=== PATIENT | male | born 1975 | race Caucasian/White ===

== ENCOUNTER 2016-09-02 11:34 | Inpatient (IN) ==
--- NOTE | 2016-09-02 12:13 | Emergency Department Note ---
Disposition Clinical Impression: Suicidal ideations Disposition: Still a Patient Condition: Good Referrals: NO,PCP [Primary Care Provider] - Forms: ED Satisfaction Letter Time of Disposition: 22:35 General Adult HPI - General Chief complaint: ED Psychiatric Symptoms Stated complaint: Psych Eval Time Seen by Provider: 09/02/16 11:40 Source: patient Limitations: no limitations Nursing Notes Reviewed: Yes Vital Signs Reviewed: Yes - History of Present Illness HPI Narrative: Patient saw his family doctor this morning and told them that he was having suicidal ideation. This is been present for days and weeks. He was raising a 4 -year-old child until a couple months ago and had that relationship broken off. He lives alone and does not have a job. He takes antibiotics off the street every day. He denies any drug use or alcohol use. He has overdosed prior on pills. He states he is taking heroin. He is pleasant and calm and interactive on my examination. Vital week ago he was admitted to [place] for pneumonia as an inpatient, but he has no such presentation of pneumonia or respiratory issue today. Symptoms were moderate and now mild. He has talked to counselors before and psychiatrist before but not lately Pain Scale: 7 - Related Data Allergies Allergy/AdvReac Type Severity Reaction Status Date / Time No Known Allergies Allergy Verified 09/02/16 11:35 Constitutional: Denies: fever, chills, weakness, weight change Eyes: Denies: eye pain, eye discharge, vision change ENT ED: Denies: ear pain, throat pain, dental pain, hearing loss, epistaxis, congestion, dysphagia Cardiovascular: Denies: chest pain, palpitations, dyspnea on exertion, edema, syncope Respiratory: Denies: cough, dyspnea, wheezes, hemoptysis, stridor Gastrointestinal: Denies: abdominal pain, nausea, vomiting, diarrhea, constipation, hematemesis, melena, hematochezia Genitourinary: Denies: urgency, dysuria, frequency, hematuria Musculoskeletal: Denies: back pain, neck pain, arthralgia, myalgia Integumentary: Denies: rash, abrasion, lesions Neurological: Denies: headache, weakness, numbness, paresthesias, confusion, abnormal gait, vertigo Psychiatric: Reports: as per HPI, anxiety, depression, suicidal thoughts. Denies: homicidal thoughts, auditory hallucinations, visual hallucinations Endocrine: Denies: fatigue Hematological/Lymphatic: Denies: easy bleeding, easy bruising Allergic/Immunologic: Denies: facial swelling, urticaria Past Medical History - Past Medical History Medical history: Reports: seizures - Social History Smoking Status: Current every day smoker Alcohol use: Reports: none Drug use: Reports: prescription drug abuse Physical Exam - General Limitations: no limitations General appearance: alert, in no apparent distress - Head Head exam: atraumatic, normocephalic, normal inspection - Eye Eye exam: Present: normal appearance, PERRL, EOMI - Expanded Eye Exam Pupils: Left: reactive - ENT ENT exam: normal exam, normal oropharynx, mucous membranes moist - Expanded ENT Exam External ear exam: Present: normal external inspection Mouth exam: Present: normal external inspection Teeth exam: Present: normal inspection Throat exam: Present: normal inspection - Neck Neck exam: Present: normal inspection, full ROM, trachea midline - Chest Chest inspection: Present: normal inspection, symmetric chest wall rise - Respiratory Respiratory exam: Present: normal lung sounds bilaterally - Cardiovascular Cardiovascular exam: Present: regular rate, normal rhythm, normal heart sounds - Abdominal Exam Abdominal exam: Present: soft, Non-Tender. Absent: tenderness, distention, guarding, rebound, rigidity - Extremities Exam Extremities exam: Present: normal inspection, full ROM. Absent: tenderness, pedal edema - Expanded Upper Extremity Exam Shoulder exam: Present: normal inspection, full ROM Arm exam: Present: normal inspection, full ROM Elbow exam: Present: normal inspection, full ROM Forearm/Wrist exam: Present: normal inspection, full ROM Hand exam: Present: normal inspection, full ROM Vascular exam: Normal: capillary refill, radial pulse - Expanded Lower Extremity Exam Hip/Pelvis exam: Present: normal inspection, full ROM Upper leg exam: Present: normal inspection, full ROM Knee exam: Present: normal inspection, full ROM Lower leg exam: Present: normal inspection, full ROM Ankle exam: Present: normal inspection, full ROM Foot/toe exam: Present: normal inspection, full ROM Neurovascular/Tendon exam: Absent: motor deficit, sensory deficit, tendon deficit - Back Exam Back exam: Present: normal inspection, full ROM. Absent: tenderness - Neurological Exam Neurological exam: Present: alert, oriented X3 - Expanded Neurological Exam Patient oriented to: Present: person, place, time Coma Scale Eye Opening: Spontaneous Coma Scale Motor Response: Obeys Commands Coma Scale Verbal Response: Oriented Coma Scale Total: 15 - Psychiatric Psychiatric exam: Present: normal affect, depressed, anxious. Absent: agitated - Skin Skin exam: Present: warm, dry, intact, normal color Course Course Narrative: Patient reevaluated, stable calm and cooperative at 7:00 and at 9:00. I spoke with the psychiatric floor, one A, and they state that they are trying multiple facilities to get the patient accepted and have been having issues with who takes his insurance. There now sending information to [facility] [place] for the second time. Vital Signs Temperature 97.7 F 09/02/16 11:36 Pulse Rate 86 09/02/16 11:36 Respiratory Rate 18 09/02/16 11:36 Blood Pressure 136/91 09/02/16 11:36 O2 Sat by Pulse Oximetry 100 09/02/16 11:36 Temperature 97.7 F 09/02/16 11:36 Pulse Rate 84 09/02/16 15:55 Respiratory Rate 20 09/02/16 15:55 Blood Pressure 93/61 09/02/16 15:55 O2 Sat by Pulse Oximetry 99 09/02/16 15:55 Oxygen Delivery Oxygen Delivery Room Air Medical Decision Making - Lab Data Result diagrams: 09/02/16 12:20 09/02/16 12:20 Lab Results 09/02/16 09/02/16 09/02/16 Range/Units 12:20 12:20 12:49 WBC 9.6 (4.3-11.1) K/mcL RBC 5.39 (4.19-5.50) M/mcL Hgb 14.6 (12.9-16.9) g/dL Hct 46.4 (37.5-50.1) % MCV 86.1 (83.0-100.0) fL MCH 27.1 L (28.0-33.3) pg MCHC 31.5 L (31.6-35.5) g/dL RDW 13.2 (11.5-14.5) % Plt Count 293 (140-400) K/mcL MPV 9.4 (9.4-12.4) fL Immature Plt Fraction 3.3 (1.1-6.1) % Sodium 139 (136-145) mEq/L Potassium 4.3 (3.5-4.5) mEq/L Chloride 105 (98-109) mEq/L Carbon Dioxide 25 (19-29) mEq/L BUN 8 (8-26) mg/dL Creatinine 1.00 (0.72-1.25) mg/dL Est GFR ( Amer) > 60 (> 60) Est GFR (Non-Af Amer) > 60 (> 60) BUN/Creatinine Ratio 8 (6-26) Glucose 85 (70-99) mg/dL Calculated Osmolality 286 (280-300) Calcium 9.4 (8.6-10.8) mg/dL Urine Color (Yellow) Urine Clarity (Clear) Urine pH (5.0-8.0) pH Units Ur Specific [place] (1.010-1.025) Urine Protein (Neg-Trace) mg/dL Urine Glucose (UA) (Normal) mg/dL Urine Ketones (Negative) mg/dL Urine Blood (Negative) Urine Nitrite (Negative) Urine Bilirubin (Negative) Urine Urobilinogen (Normal) mg/dL Ur Leukocyte Esterase (Negative) Urine Opiates Screen Negative (Wgwqzn=044) ng/mL Ur Barbiturates Screen Negative (Vgogcm=356) ng/mL Ur Phencyclidine Scrn Negative (Cutoff=25) ng/mL Ur Amphetamines Screen Negative (Rjmeqz=6639) ng/mL U Benzodiazepines Scrn Positive H (Ruaknz=123) ng/mL Urine Cocaine Screen Negative (Cutoff= 300) ng/mL U Marijuana (THC) Screen Negative (Cutoff = 50) ng/mL Ethyl Alcohol < 10 (0-10) mg/dL 09/02/16 Range/Units 12:55 WBC (4.3-11.1) K/mcL RBC (4.19-5.50) M/mcL Hgb (12.9-16.9) g/dL Hct (37.5-50.1) % MCV (83.0-100.0) fL MCH (28.0-33.3) pg MCHC (31.6-35.5) g/dL RDW (11.5-14.5) % Plt Count (140-400) K/mcL MPV (9.4-12.4) fL Immature Plt Fraction (1.1-6.1) % Sodium (136-145) mEq/L Potassium (3.5-4.5) mEq/L Chloride (98-109) mEq/L Carbon Dioxide (19-29) mEq/L BUN (8-26) mg/dL Creatinine (0.72-1.25) mg/dL Est GFR ( Amer) (> 60) Est GFR (Non-Af Amer) (> 60) BUN/Creatinine Ratio (6-26) Glucose (70-99) mg/dL Calculated Osmolality (280-300) Calcium (8.6-10.8) mg/dL Urine Color Yellow (Yellow) Urine Clarity Clear (Clear) Urine pH 6.0 (5.0-8.0) pH Units Ur Specific [place] 1.012 (1.010-1.025) Urine Protein Negative (Neg-Trace) mg/dL Urine Glucose (UA) Normal (Normal) mg/dL Urine Ketones Negative (Negative) mg/dL Urine Blood Negative (Negative) Urine Nitrite Negative (Negative) Urine Bilirubin Negative (Negative) Urine Urobilinogen Normal (Normal) mg/dL Ur Leukocyte Esterase Negative (Negative) Urine Opiates Screen (Kehxju=187) ng/mL Ur Barbiturates Screen (Wpcmqn=108) ng/mL Ur Phencyclidine Scrn (Cutoff=25) ng/mL Ur Amphetamines Screen (Ytjyun=0715) ng/mL U Benzodiazepines Scrn (Rmdpno=580) ng/mL Urine Cocaine Screen (Cutoff= 300) ng/mL U Marijuana (THC) Screen (Cutoff = 50) ng/mL Ethyl Alcohol (0-10) mg/dL
[2016-09-02 12:26] LABS: Hematocrit 46.4 % (37.5-50.1); Hemoglobin 14.6 g/dL (12.9-16.9); Immature Platelets 3.3 % (1.1-6.1); Mean Corpuscular HGB Conc 31.5 g/dL (31.6-35.5); Mean Corpuscular Hemoglobin 27.1 pg (28.0-33.3); Mean Corpuscular Volume 86.1 fL (83.0-100.0); Mean Platelet Volume 9.4 fL (9.4-12.4); Red Blood Count 5.39 M/mcL (4.19-5.50); Red Cell Distribution Width 13.2 % (11.5-14.5)
[2016-09-02 12:37] LABS: BUN/Creatinine Ratio 8 (6-26); Blood Urea Nitrogen 8 mg/dL (8-26); Calcium 9.4 mg/dL (8.6-10.8); Carbon Dioxide 25 mEq/L (19-29); Chloride 105 mEq/L (98-109); Ethanol < 10 mg/dL (0-10); Glucose 85 mg/dL (70-99); Osmolality,Calculated 286 (280-300); Potassium 4.3 mEq/L (3.5-4.5); Sodium 139 mEq/L (136-145); eGFR For African Americans > 60 (> 60); eGFR For Non-African Americans > 60 (> 60)
[2016-09-02 13:03] LABS: Bilirubin,Urine Negative (Negative); Blood,Urine Negative (Negative); Clarity,Urine Clear (Clear); Color,Urine Yellow (Yellow); Glucose,Urine (UA) Normal (Normal); Ketones,Urine Negative (Negative); Leukocyte Esterase,Urine Negative (Negative); Nitrite,Urine Negative (Negative); Protein,Urine Negative (Neg-Trace); Specific Gravity,Urine 1.012 (1.010-1.025); Urobilinogen,Urine Normal (Normal)
[2016-09-02 13:40] LABS: Amphetamine Screen,Urine Negative ng/mL (Cutoff=1000); Barbiturate Screen,Urine Negative ng/mL (Cutoff=200); Benzodiazepines Screen,Urine Positive ng/mL (Cutoff=200); Cannabinoid Screen,Urine Negative ng/mL (Cutoff = 50); Cocaine Screen,Urine Negative ng/mL (Cutoff= 300); Opiate Screen,Urine Negative ng/mL (Cutoff=300); Phencyclidine Screen,Urine Negative ng/mL (Cutoff=25)
[2016-09-02] MEDS: Nicotine 21 MG PATCH.TD24 TD SCH (21:02)
[2016-09-03] MEDS ORDERED: diazePAM 5 MG TABLET PO ONE (00:56)
[2016-09-03] MEDS ORDERED: Ibuprofen 600 MG TABLET PO ONE (00:57)
--- NOTE | 2016-09-03 06:51 | Emergency Department Note ---
START Narrative - START START: I, London Denise, examined this patient and my medical decision-making was reviewed with the EDGE B[employer]ING [employer] BEARER/PA/Advanced Practice Nurse/Resident Physician. I agree with the documented findings, disposition and treatment plan as described except to the extent set forth below. 41-year-old male received in sign out at 11 PM pending placement. Patient was evaluated by behavioral health and is awaiting placement at a psychiatric facility. Patient woke up midway through the night and was anxious, requiring administration of oral anxiolytics. At the end of my shift the patient had no other further concerns or complaints and is still pending disposition. Pt signed out to Dr. Dan pending dispo
--- NOTE | 2016-09-03 07:00 | Emergency Department Note ---
Disposition Clinical Impression: Suicidal ideations Disposition: Admitted As Inpatient Condition: Good Referrals: NO,PCP [Primary Care Provider] - Forms: ED Satisfaction Letter Time of Disposition: 13:39 General Adult HPI - General Chief complaint: ED Psychiatric Symptoms Stated complaint: Psych Eval Time Seen by Provider: 09/02/16 22:43 Source: patient Limitations: no limitations - History of Present Illness Pain Scale: 0 - Related Data Allergies Allergy/AdvReac Type Severity Reaction Status Date / Time No Known Allergies Allergy Verified 09/02/16 11:35 Constitutional: Denies: fever, chills, weakness, weight change Eyes: Denies: eye pain, eye discharge, vision change ENT ED: Denies: ear pain, throat pain, dental pain, hearing loss, epistaxis, congestion, dysphagia Cardiovascular: Denies: chest pain, palpitations, dyspnea on exertion, edema, syncope Respiratory: Denies: cough, dyspnea, wheezes, hemoptysis, stridor Gastrointestinal: Denies: abdominal pain, nausea, vomiting, diarrhea, constipation, hematemesis, melena, hematochezia Genitourinary: Denies: urgency, dysuria, frequency, hematuria Musculoskeletal: Denies: back pain, neck pain, arthralgia, myalgia Integumentary: Denies: rash, abrasion, lesions Neurological: Denies: headache, weakness, numbness, paresthesias, confusion, abnormal gait, vertigo Psychiatric: Reports: as per HPI, anxiety, depression, suicidal thoughts. Denies: homicidal thoughts, auditory hallucinations, visual hallucinations Endocrine: Denies: fatigue Hematological/Lymphatic: Denies: easy bleeding, easy bruising Allergic/Immunologic: Denies: facial swelling, urticaria Past Medical History - Past Medical History Medical history: Reports: seizures - Social History Smoking Status: Current every day smoker Alcohol use: Reports: none Drug use: Reports: prescription drug abuse Physical Exam - General Limitations: no limitations General appearance: alert, in no apparent distress Course Vital Signs Temperature 97.7 F 09/02/16 11:36 Pulse Rate 86 09/02/16 11:36 Respiratory Rate 18 09/02/16 11:36 Blood Pressure 136/91 09/02/16 11:36 O2 Sat by Pulse Oximetry 100 09/02/16 11:36 Temperature 98.1 F 09/03/16 10:00 Pulse Rate 62 09/03/16 10:00 Respiratory Rate 18 09/03/16 10:00 Blood Pressure 111/64 09/03/16 10:00 O2 Sat by Pulse Oximetry 100 09/03/16 10:00 Oxygen Delivery Oxygen Delivery Room Air Medical Decision Making - Lab Data Result diagrams: 09/02/16 12:20 09/02/16 12:20 Lab Results 09/02/16 09/02/16 09/02/16 Range/Units 12:20 12:20 12:49 WBC 9.6 (4.3-11.1) K/mcL RBC 5.39 (4.19-5.50) M/mcL Hgb 14.6 (12.9-16.9) g/dL Hct 46.4 (37.5-50.1) % MCV 86.1 (83.0-100.0) fL MCH 27.1 L (28.0-33.3) pg MCHC 31.5 L (31.6-35.5) g/dL RDW 13.2 (11.5-14.5) % Plt Count 293 (140-400) K/mcL MPV 9.4 (9.4-12.4) fL Immature Plt Fraction 3.3 (1.1-6.1) % Sodium 139 (136-145) mEq/L Potassium 4.3 (3.5-4.5) mEq/L Chloride 105 (98-109) mEq/L Carbon Dioxide 25 (19-29) mEq/L BUN 8 (8-26) mg/dL Creatinine 1.00 (0.72-1.25) mg/dL Est GFR ( Amer) > 60 (> 60) Est GFR (Non-Af Amer) > 60 (> 60) BUN/Creatinine Ratio 8 (6-26) Glucose 85 (70-99) mg/dL Calculated Osmolality 286 (280-300) Calcium 9.4 (8.6-10.8) mg/dL Urine Color (Yellow) Urine Clarity (Clear) Urine pH (5.0-8.0) pH Units Ur Specific [place] (1.010-1.025) Urine Protein (Neg-Trace) mg/dL Urine Glucose (UA) (Normal) mg/dL Urine Ketones (Negative) mg/dL Urine Blood (Negative) Urine Nitrite (Negative) Urine Bilirubin (Negative) Urine Urobilinogen (Normal) mg/dL Ur Leukocyte Esterase (Negative) Urine Opiates Screen Negative (Uycfbr=331) ng/mL Ur Barbiturates Screen Negative (Iwjfyd=380) ng/mL Ur Phencyclidine Scrn Negative (Cutoff=25) ng/mL Ur Amphetamines Screen Negative (Tpvrbw=7045) ng/mL U Benzodiazepines Scrn Positive H (Pkcttu=730) ng/mL Urine Cocaine Screen Negative (Cutoff= 300) ng/mL U Marijuana (THC) Screen Negative (Cutoff = 50) ng/mL Ethyl Alcohol < 10 (0-10) mg/dL 09/02/16 Range/Units 12:55 WBC (4.3-11.1) K/mcL RBC (4.19-5.50) M/mcL Hgb (12.9-16.9) g/dL Hct (37.5-50.1) % MCV (83.0-100.0) fL MCH (28.0-33.3) pg MCHC (31.6-35.5) g/dL RDW (11.5-14.5) % Plt Count (140-400) K/mcL MPV (9.4-12.4) fL Immature Plt Fraction (1.1-6.1) % Sodium (136-145) mEq/L Potassium (3.5-4.5) mEq/L Chloride (98-109) mEq/L Carbon Dioxide (19-29) mEq/L BUN (8-26) mg/dL Creatinine (0.72-1.25) mg/dL Est GFR ( Amer) (> 60) Est GFR (Non-Af Amer) (> 60) BUN/Creatinine Ratio (6-26) Glucose (70-99) mg/dL Calculated Osmolality (280-300) Calcium (8.6-10.8) mg/dL Urine Color Yellow (Yellow) Urine Clarity Clear (Clear) Urine pH 6.0 (5.0-8.0) pH Units Ur Specific [place] 1.012 (1.010-1.025) Urine Protein Negative (Neg-Trace) mg/dL Urine Glucose (UA) Normal (Normal) mg/dL Urine Ketones Negative (Negative) mg/dL Urine Blood Negative (Negative) Urine Nitrite Negative (Negative) Urine Bilirubin Negative (Negative) Urine Urobilinogen Normal (Normal) mg/dL Ur Leukocyte Esterase Negative (Negative) Urine Opiates Screen (Idtxaj=931) ng/mL Ur Barbiturates Screen (Jyjvjh=672) ng/mL Ur Phencyclidine Scrn (Cutoff=25) ng/mL Ur Amphetamines Screen (Jfnpjm=7729) ng/mL U Benzodiazepines Scrn (Ycedpi=433) ng/mL Urine Cocaine Screen (Cutoff= 300) ng/mL U Marijuana (THC) Screen (Cutoff = 50) ng/mL Ethyl Alcohol (0-10) mg/dL Attestation Statement - Attestation Attestation: Care of patient assumed from Dr. Denise 7 AM pending psychiatric disposition. Patient presented suicidal. He was medically cleared by the previous team. He is sleeping and resting comfortably at the time of my exam. Final disposition pending 13:39: 1A accepts admission
[2016-09-03] MEDS ORDERED: Nicotine 21 MG PATCH.TD24 TD SCH ×2 (09:00→21:00)
[2016-09-03] MEDS ORDERED: Ibuprofen 400 MG TABLET PO PRN (13:54)
[2016-09-03] MEDS ORDERED: Haloperidol Lactate 5 MG/ML VIAL IM PRN (13:54)
[2016-09-03] MEDS ORDERED: *HR* LORazepam 1 MG TABLET PO PRN (13:54)
[2016-09-03] MEDS ORDERED: MOM Conc 10 ML UD.LIQ PO PRN (13:54)
[2016-09-03] MEDS ORDERED: Mag Hydrox/Al Hydrox/Simeth 30 ML UDC PO PRN (13:54)
[2016-09-03] MEDS ORDERED: *HR* LORazepam 2 MG/ML VIAL IM PRN (13:54)
[2016-09-03] MEDS: Nicotine 21 MG PATCH.TD24 TD SCH (14:31)
[2016-09-03] MEDS: Amoxicillin 500 MG CAPSULE PO SCH (20:43)
[2016-09-03] MEDS: traZODone 50 MG TABLET PO PRN (20:43)
[2016-09-04] MEDS: Amoxicillin 500 MG CAPSULE PO SCH ×2 (08:30→20:54)
[2016-09-04] MEDS: Nicotine 21 MG PATCH.TD24 TD SCH (08:30)
[2016-09-04] MEDS ORDERED: Acetaminophen/Aspirin/Caffeine TABLET PO PRN (14:00)
--- NOTE | 2016-09-04 14:26 | Psychiatry History & Physical ---
Date of Encounter: 09/04/16 Time of Encounter: 13:30 History of Present Illness Patient Stated Chief Complaint: Suicidal and homicidal Medicare Admission Attestation: For traditional Medicare patients the provided hospital inpatient services are reasonable and necessary and in the case of services not specified as inpatient -only under 42 CFR 419.22 (n), that they are appropriately provided as inpatient services in accordance 42 CFR 412.3. For Critical Access Hospital the patient may reasonably be expected to be discharged or transferred to a hospital within 96 hours after admission to the Critical Access Hospital. Admitted From: Emergency Dept History of Present Illness: Mr. Luna is a 41 year old male admitted from the emergency for evaluation and treatment of suicidal and homicidal ideation, irritability and agitation and history of dependence on Xanax. Patient reported that he was stressed out when his 4 years old daughter was picked up by his who is from him and he is attached to his daughter. Also he has not been seeing his doctor or taken medication for a few months and felt extremely anxious and unable to sleep and he was more irritable and easily agitated. Patient had remote history of of mental health's treatment for anxiety and bipolar disorder and he did not comply or follow treatments and appointments. He also has significant history of substance abuse including benzodiazepine stimulants marijuana and alcohol and other's. He is interested in mood stabilization to control his anger and frequent fights with people and inability to keep relationships with his children or spouse. Past Med Surg Social Fam HX - Past Medical History Medical history: seizures, other - Past Psychiatric History Psychiatric history: Reports: anxiety, bipolar, other (Noncompliance) - Past Surgical History Surgical History: vasectomy - Social History Smoking Status: Current every day smoker Smokeless Tobacco Status: Yes (skoal) Alcohol use: none Drug use: methamphetamine, prescription drug abuse Medications & Allergies Amoxicillin [Amoxil] 500 mg PO BID 09/03/16 [History] Allergies No Known Allergies Allergy (Verified 09/02/16 11:35) Review of Systems Psychiatric: Reports: suicidal ideation, homicidal ideation, irritability, mood swings Mental Status Exam Patient orientation: Yes Person, Yes Time, Yes Place Level of alertness: Alert Patient appearance: Appropriate, Well Groomed Behavior: calm, cooperative, anxious, restless Psychomotor activity: Normal Eye contact: Maintains Eye Contact Mood description: Anxious, Labile, Irritable Affect description: congruent with mood, labile, dysphoric Speech pattern: Normal rate, Normal rhythm, Normal tone Speech volume: Normal Thought process: Linear, Goal Oriented, Racing Thought content: No Suicidal ideation, No Homicidal ideation, No Overt delusions Perceptual disturbances: No Auditory hallucinations, No Visual hallucinations Attention span: Capable of Focused Attention Memory description: Grossly Intact Patient reliability: Reliable Historian Intelligence estimate: Average Judgment: Limited Insight: Partial Results - Vital Signs Vital signs: Temp Pulse Resp BP Pulse Ox 98 F 74 16 100/73 100 09/04/16 09:00 09/04/16 09:00 09/04/16 09:00 09/04/16 09:00 09/03/16 10:00 - Labs Labs: Laboratory Last Values WBC 9.6 K/mcL (4.3-11.1) 09/02/16 12:20 RBC 5.39 M/mcL (4.19-5.50) 09/02/16 12:20 Hgb 14.6 g/dL (12.9-16.9) 09/02/16 12:20 Hct 46.4 % (37.5-50.1) 09/02/16 12:20 MCV 86.1 fL (83.0-100.0) 09/02/16 12:20 MCH 27.1 pg (28.0-33.3) L 09/02/16 12:20 MCHC 31.5 g/dL (31.6-35.5) L 09/02/16 12:20 RDW 13.2 % (11.5-14.5) 09/02/16 12:20 Plt Count 293 K/mcL (140-400) 09/02/16 12:20 MPV 9.4 fL (9.4-12.4) 09/02/16 12:20 Immature Plt Fraction 3.3 % (1.1-6.1) 09/02/16 12:20 Sodium 139 mEq/L (136-145) 09/02/16 12:20 Potassium 4.3 mEq/L (3.5-4.5) 09/02/16 12:20 Chloride 105 mEq/L (98-109) 09/02/16 12:20 Carbon Dioxide 25 mEq/L (19-29) 09/02/16 12:20 BUN 8 mg/dL (8-26) 09/02/16 12:20 Creatinine 1.00 mg/dL (0.72-1.25) 09/02/16 12:20 Est GFR ( Amer) > 60 (> 60) 09/02/16 12:20 Est GFR (Non-Af Amer) > 60 (> 60) 09/02/16 12:20 BUN/Creatinine Ratio 8 (6-26) 09/02/16 12:20 Glucose 85 mg/dL (70-99) 09/02/16 12:20 Calculated Osmolality 286 (280-300) 09/02/16 12:20 Calcium 9.4 mg/dL (8.6-10.8) 09/02/16 12:20 Urine Color Yellow (Yellow) 09/02/16 12:55 Urine Clarity Clear (Clear) 09/02/16 12:55 Urine pH 6.0 pH Units (5.0-8.0) 09/02/16 12:55 Ur Specific [place] 1.012 (1.010-1.025) 09/02/16 12:55 Urine Protein Negative mg/dL (Neg-Trace) 09/02/16 12:55 Urine Glucose (UA) Normal mg/dL (Normal) 09/02/16 12:55 Urine Ketones Negative mg/dL (Negative) 09/02/16 12:55 Urine Blood Negative (Negative) 09/02/16 12:55 Urine Nitrite Negative (Negative) 09/02/16 12:55 Urine Bilirubin Negative (Negative) 09/02/16 12:55 Urine Urobilinogen Normal mg/dL (Normal) 09/02/16 12:55 Ur Leukocyte Esterase Negative (Negative) 09/02/16 12:55 Urine Opiates Screen Negative ng/mL (Wznrfr=050) 09/02/16 12:49 Ur Barbiturates Screen Negative ng/mL (Yakfdx=713) 09/02/16 12:49 Ur Phencyclidine Scrn Negative ng/mL (Cutoff=25) 09/02/16 12:49 Ur Amphetamines Screen Negative ng/mL (Mgbabu=4820) 09/02/16 12:49 U Benzodiazepines Scrn Positive ng/mL (Kdivnc=140) H 09/02/16 12:49 Urine Cocaine Screen Negative ng/mL (Cutoff= 300) 09/02/16 12:49 U Marijuana (THC) Screen Negative ng/mL (Cutoff = 50) 09/02/16 12:49 Ethyl Alcohol < 10 mg/dL (0-10) 09/02/16 12:20 Assessment and Plan (1) Bipolar disorder, unspecified Current visit: Yes Status: Acute Plan: Admit inpatient for safety and stabilization, Close observation, Suicide Precautions per unit protocol, Encourage participation in unit milieu, Group Therapy, Monitor sleep, Monitor appetite Additional Plan: We will start patient on Depakote 500 mg at bedtime benefits and side effects were discussed patient is agreeable to start and will monitor. Risks, benefits, side effects, alternatives discussed w/pt: Yes Patient agreeable to treatment: Yes Estimated Length of Stay (Days): 3 Qualifiers: Current bipolar episode type: mixed Current episode severity: severe Qualified Code(s): F31.63 - Bipolar disorder, current episode mixed, severe, without psychotic features
[2016-09-04] MEDS ORDERED: Divalproex (24 HR) 500 MG TABLET PO SCH (21:00)
[2016-09-05] MEDS: Nicotine 21 MG PATCH.TD24 TD SCH (09:00)
[2016-09-05] MEDS: Amoxicillin 500 MG CAPSULE PO SCH ×2 (09:00→20:30)
--- NOTE | 2016-09-05 13:50 | Psychiatry Progress Note ---
Date of Encounter: 09/05/16 Time of Encounter: 13:47 Subjective Interval history: Patient is here for follow-up. He reports taking the Depakote last night and she did not have any side effects but his sleep was interrupted and he feels calm. I discussed with him increasing his dose and he was willing to sign himself voluntarily to complete his treatment and medication adjustment. Staff reports he is cooperative and compliant and there is no report of agitation or irritability. dockworker is working on discharge plans and discussed its with patient's mother. Patient denies any suicidal or homicidal ideation. Review of Systems Psychiatric: Reports: suicidal ideation, homicidal ideation, irritability, mood swings Objective: Exam Patient orientation: Yes Person, Yes Time, Yes Place Level of alertness: Alert Patient appearance: Appropriate, Well Groomed Behavior: calm, cooperative, anxious Psychomotor activity: Normal Eye contact: Maintains Eye Contact Mood description: Euthymic/stable, Anxious Affect description: congruent with mood, euthymic Speech pattern: Normal rate, Normal rhythm, Normal tone Speech volume: Normal Thought process: Linear, Goal Oriented Thought content: No Suicidal ideation, No Homicidal ideation, No Overt delusions Perceptual disturbances: No Auditory hallucinations, No Visual hallucinations Judgment: Fair Insight: Partial Results - Vital Signs Vital Signs: Temp Pulse Resp BP Pulse Ox 98.2 F 77 16 105/72 100 09/05/16 09:00 09/05/16 09:00 09/05/16 09:00 09/05/16 09:00 09/03/16 10:00 Assessment and Plan (1) Bipolar disorder, unspecified Current visit: Yes Status: Acute Plan: Continue hospitalization, Close observation, Suicide Precautions per unit protocol, Encourage participation in unit milieu, Group Therapy, Monitor sleep, Monitor appetite Risks, benefits, side effects, alternatives discussed w/pt: Yes Patient agreeable to treatment: Yes Qualifiers: Current bipolar episode type: mixed Current episode severity: severe Qualified Code(s): F31.63 - Bipolar disorder, current episode mixed, severe, without psychotic features Consult Discharge Plan - Plan Referrals: Tyrese Balbuena [facility] [employer] [facility] [Outside] - 09/08/16 9:15 am (The above appointment is with Natalie for counseling. You will also see Flora Buchanan, primary care provider, on 09/16/2016 at 12:30pm. You will also see Ayesha Farias, psychiatric prescriber, on 11/25/2016 at 10:00am.)
[2016-09-05] MEDS: Divalproex (24 HR) 500 MG TABLET PO SCH (20:30)
[2016-09-05] MEDS: hydrOXYzine pamoate 25 MG CAPSULE PO PRN (20:30)
[2016-09-05] MEDS: traZODone 50 MG TABLET PO PRN (20:30)
[2016-09-06] MEDS: Amoxicillin 500 MG CAPSULE PO SCH ×2 (08:54→20:46)
[2016-09-06] MEDS: Nicotine 21 MG PATCH.TD24 TD SCH (08:55)
--- NOTE | 2016-09-06 13:55 | Psychiatry Progress Note ---
Date of Encounter: 09/06/16 Time of Encounter: 13:30 Subjective Interval history: Patient is here for follow-up. He reports sleeping better after dose increase of Depakote. He also reports that she is not having racing thoughts and he is not irritable or anxious. He has been compliant with medication and activities. Denied any suicidal ideation. I discussed with him treatment plan including Depakote level on Thursday. Review of Systems Psychiatric: Reports: suicidal ideation, homicidal ideation, irritability, mood swings Objective: Exam Patient orientation: Yes Person, Yes Time, Yes Place Level of alertness: Alert Patient appearance: Appropriate, Well Groomed Behavior: calm, cooperative, anxious Psychomotor activity: Normal Eye contact: Maintains Eye Contact Mood description: Euthymic/stable Affect description: congruent with mood, full range, labile Speech pattern: Normal rate, Normal rhythm, Normal tone, Limited Speech volume: Normal Thought process: Linear, Goal Oriented Thought content: No Suicidal ideation, No Homicidal ideation, No Overt delusions Perceptual disturbances: No Auditory hallucinations, No Visual hallucinations Judgment: Fair Insight: Partial Results - Vital Signs Vital Signs: Temp Pulse Resp BP Pulse Ox 98.3 F 91 16 109/72 100 09/06/16 09:00 09/06/16 09:00 09/06/16 09:00 09/06/16 09:00 09/03/16 10:00 Assessment and Plan (1) Bipolar disorder, unspecified Current visit: Yes Status: Acute Plan: Continue hospitalization, Close observation, Suicide Precautions per unit protocol, Encourage participation in unit milieu, Group Therapy, Monitor sleep, Monitor appetite Additional Plan: Depakote level on Thursday. Given order Risks, benefits, side effects, alternatives discussed w/pt: Yes Patient agreeable to treatment: Yes Qualifiers: Current bipolar episode type: mixed Current episode severity: severe Qualified Code(s): F31.63 - Bipolar disorder, current episode mixed, severe, without psychotic features Consult Discharge Plan - Plan Referrals: [facility] [Outside[facility] - 09/08/16 9:15 am (The above appointment is with Natalie for counseling. You will also see Flora Buchanan, primary care provider, on 09/16/2016 at 12:30pm. You will also see Ayesha Farias, psychiatric prescriber, on 11/25/2016 at 10:00am.)
[2016-09-06] MEDS: hydrOXYzine pamoate 25 MG CAPSULE PO PRN (20:47)
[2016-09-06] MEDS: traZODone 50 MG TABLET PO PRN (20:47)
[2016-09-06] MEDS: Divalproex (24 HR) 500 MG TABLET PO SCH (20:47)
[2016-09-07] MEDS: Amoxicillin 500 MG CAPSULE PO SCH ×2 (08:57→20:31)
[2016-09-07] MEDS: Nicotine 21 MG PATCH.TD24 TD SCH (08:57)
--- NOTE | 2016-09-07 14:03 | Psychiatry Progress Note ---
Date of Encounter: 09/07/16 Time of Encounter: 14:01 Subjective Interval history: Patient is here for follow-up. He reports improved sleep, no anxiety but still have some racing thoughts. He denied any suicidal or homicidal ideation. Tolerated the medication without any side effects and showing improved insight into his illness and needs to comply with medication and treatment. I reviewed with him the treatment plan and discharge plan and he would have depakote level in the morning. Review of Systems Psychiatric: Reports: suicidal ideation, homicidal ideation, irritability, mood swings Objective: Exam Patient orientation: Yes Person, Yes Time, Yes Place Level of alertness: Alert Patient appearance: Appropriate, Well Groomed Behavior: calm, cooperative, anxious Psychomotor activity: Normal Eye contact: Maintains Eye Contact Mood description: Euthymic/stable Affect description: congruent with mood, full range Speech pattern: Normal rate, Normal rhythm, Normal tone Speech volume: Normal Thought process: Linear, Goal Oriented Thought content: No Suicidal ideation, No Homicidal ideation, No Overt delusions Perceptual disturbances: No Auditory hallucinations, No Visual hallucinations Judgment: Fair Insight: Partial Results - Vital Signs Vital Signs: Temp Pulse Resp BP Pulse Ox 98 F 82 18 103/71 100 09/07/16 09:00 09/07/16 13:49 09/07/16 09:00 09/07/16 09:00 09/03/16 10:00 Assessment and Plan (1) Bipolar disorder, unspecified Current visit: Yes Status: Acute Plan: Continue hospitalization, Close observation, Suicide Precautions per unit protocol, Encourage participation in unit milieu, Group Therapy, Monitor sleep, Monitor appetite Risks, benefits, side effects, alternatives discussed w/pt: Yes Patient agreeable to treatment: Yes Qualifiers: Current bipolar episode type: mixed Current episode severity: severe Qualified Code(s): F31.63 - Bipolar disorder, current episode mixed, severe, without psychotic features Consult Discharge Plan - Plan Referrals: [facility] [place] [Outside] - 09/08/16 9:15 am (The above appointment is with Natalie for counseling. You will also see Flora Buchanan, primary care provider, on 09/16/2016 at 12:30pm. You will also see Ayesha Farias, psychiatric prescriber, on 11/25/2016 at 10:00am.)
[2016-09-07] MEDS: Divalproex (24 HR) 500 MG TABLET PO SCH (20:31)
[2016-09-07] MEDS: hydrOXYzine pamoate 25 MG CAPSULE PO PRN (20:31)
[2016-09-07] MEDS: traZODone 50 MG TABLET PO PRN (20:31)
[2016-09-08] MEDS: Amoxicillin 500 MG CAPSULE PO SCH (09:55)
[2016-09-08] MEDS: Nicotine 21 MG PATCH.TD24 TD SCH (09:55)
[2016-09-08 10:33] VITALS: BP 105/77
--- NOTE | 2016-09-08 11:47 | Discharge Summary ---
Date of Encounter: 09/08/16 Time of Encounter: 11:46 Diagnosis - Discharge Diagnosis (1) Bipolar disorder, unspecified Status: Acute Qualifiers: Current bipolar episode type: mixed Current episode severity: severe Psychotic features: without psychotic features Qualified Code(s): F31.63 - Bipolar disorder, current episode mixed, severe, without psychotic features Medications - Discharge Medications Prescriptions: Divalproex (24 HR) [Depakote ER (24 HR)] 1,000 mg PO HS #60 tab.er.24h Amoxicillin [Amoxil] 500 mg PO BID 09/03/16 [History] Divalproex (24 HR) [Depakote ER (24 HR)] 1,000 mg PO HS #60 tab.er.24h 09/08/16 [Rx] Allergies No Known Allergies Allergy (Verified 09/02/16 11:35) Results Procedures and tests throughout hospitalization: Completed Lab Orders Category Date Time Status Valproate Routine Lab 09/08/16 07:55 Completed Provider Date of admission: 09/03/16 13:43 Primary care physician: PCP NO Discharging clinician: Patricia Wallace Assessment and Plan - Patient/Caregiver Discharge Instructions Activity: resume usual activities as tolerated Diet: regular diet - Follow up Plan Follow up with: [facility] [Outside] - 09/16/16 11:00 am (The above appointment is with Natalie for counseling. You will also see Ayesha Farias, psychiatric prescriber, in the same office on 11/25/2016 at 10:00am. Please arrive 15 minutes early to complete paperwork. Please bring your insurance card , photo ID and medications in their original bottles. If you do not have insurance, bring proof of income to apply for the sliding fee scale. If you are unable to keep this appointment, 24 hour business notice of cancellation is expected. This is the first available appointment. ) [facility] [Outside] - 09/16/16 12:30 pm (The above appointment is Apolonia Buchanan, primary care provider. Please arrive 15 minutes early to complete paperwork. Please bring your insurance card, photo ID and medications in their original bottles. If you do not have insurance, bring proof of income to apply for the sliding fee scale. If you are unable to keep this appointment, 24 hour business notice of cancellation is expected. This is the first available appointment. ) Functional capacity at discharge: independent ambulation Overall status at discharge: Stable Disposition: Home, Self-Care Hospital Course Hospital course: Mr. Luna is a 41 year old male who was initially admitted for SI/HI. Now denying both. According to staff he is doing well. He was started on Depakote and he had a positive clinical response. VPA level this morning 42.8. A one month supply of medications was escribed to his pharmacy. He took prns of Trazodone and Vistaril while inpatient and he slept well on these medications. No evidence of psychosis or major mood disturbance on exam. Behaviors in the hospital have been appropriate. - Time Spent with Patient Total time spent providing and/or coordinating discharge services: Quality - Multiple Antipsychotics Patient discharged on 2 or more antipsychotic medications: No Mental Status Exam - Mental Status Exam Patient orientation: Yes Person, Yes Time, Yes Place Level of alertness: Alert Patient appearance: Appropriate Behavior: calm, cooperative Psychomotor activity: Normal Eye contact: Maintains Eye Contact Mood description: Euthymic/stable Affect description: congruent with mood, full range Speech pattern: Normal rate, Normal rhythm, Normal tone Speech Volume: Normal Thought process: Linear, Goal Oriented Thought Content: No Suicidal ideation, No Homicidal ideation, No Overt delusions Perceptual Disturbances: No Auditory hallucinations, No Visual hallucinations Judgment: Fair Insight: Partial
== END 2016-09-08 15:25 | disposition home or self-care (01) | DRG 753 ==
LOC: EMEROO 11:34 → 1ANU 09-03 13:43 → SUATTDRO 09-03 13:43 → 1ANU 09-03 14:02
PROVIDERS: ADMIT Psychiatry & Neurology Psychiatry; ATTEND Psychiatry & Neurology Psychiatry